=== PATIENT | female | born 1960 | race Two or more races ===

== ENCOUNTER 2016-10-14 05:44 | Emergency (ER) | payer MEDICAID, OTHER ==
[~2016-10-14] VITALS: Ht 165.1 cm; Wt 63.5 kg
[~2016-10-14 05:44] MED LIST: ACETAMINOPHEN-1 EAC1 ORAL; IBUPROFEN600 MG ORAL; ROBAXIN500 MG PO; SYNTHROID125 MCG ORAL; TRAMADOL HCL50 MG ORAL
[2016-10-14] MEDS ORDERED: SYNTHROID175 MCG ORAL (05:54)
[2016-10-14] MEDS ORDERED: Morphine Sulfate 4mg/ml Inj IVP ONE ×2 (06:30→08:15)
[2016-10-14] MEDS ORDERED: Metoclopramide 10mg/2ml Inj IVP ONE (06:30)
[2016-10-14 07:10] VITALS: BP 137/97
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
[2016-10-14 07:37] LABS: BASOPHILS % (AUTO) 1.8 % (0.0-2.0); EOSINOPHILS % (AUTO) 3.1 % (0.0-3.0); LYMPHOCYTES % (AUTO) 42.2 % (20.0-45.0); MEAN CORPUSCULAR HEMOGLOBIN 33.8 PG (27.0-31.0); MEAN CORPUSCULAR HGB CONC 34.2 G/DL (32.0-36.0); MEAN CORPUSCULAR VOLUME 99 FL (80-99); MONOCYTES % (AUTO) 7.7 % (1.0-10.0); NEUTROPHILS % (AUTO) 45.2 % (45.0-75.0); PLATELET COUNT 245 K/UL (150-450); RED BLOOD COUNT 4.25 M/UL (4.20-5.40); WHITE BLOOD COUNT 6.2 K/UL (4.8-10.8)
[2016-10-14 07:40] LABS: ALBUMIN/GLOBULIN RATIO 1.6 (1.0-2.7); CALCIUM 9.7 mg/dL (8.6-10.2); CREATININE 1.2 mg/dL (0.5-0.9); GLOMERULAR FILTRATION RATE 46.4 mL/min (>60); POTASSIUM 4.3 mEQ/L (3.4-4.9); TOTAL PROTEIN 7.5 g/dL (6.6-8.7)
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
[2016-10-14] MEDS ORDERED: ACETAMINOPHEN-1 EAC1 ORAL (08:27)
[2016-10-14] MEDS ORDERED: AMOXICILLIN500 MG ORAL (08:27)
[2016-10-14 08:34] VITALS: BP 124/87
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
== END 2016-10-14 08:34 | disposition home or self-care (01) ==
LOC: EMR 06:13
DX: M54.2 Cervicalgia (principal); R51 Headache; N18.9 Chronic kidney disease, unspecified
CPT/HCPCS: 36415; 70450; 70486; 72170; 73552; 80053; 85025; 96374; 96375; 99284; J2270; J2765